=== PATIENT | female | born 1985 | race Caucasian/White ===

== ENCOUNTER 2020-11-03 10:03 | Emergency (ER) | payer BC ==
[2020-11-03] MEDS ORDERED: Pantoprazole 40 MG VIAL ONE (10:51)
[2020-11-03] MEDS ORDERED: Ondansetron PF 4 MG/2 ML Vial ONE (10:51)
[2020-11-03] MEDS ORDERED: Sodium Chloride 0.9% 1,000 ML ONE (10:51)
[2020-11-03 11:12] LABS: Hemoglobin 13.9 g/dL (12.0-16.0); Mean Corpuscular HGB CONC 32.9 g/dL (32.0-36.0); Mean Corpuscular Hemoglobin 29.2 pg (27.0-31.0); Mean Corpuscular Volume 88.7 fL (78.0-98.0); Mean Platelet Volume 9.2 fL (7.4-10.4); Platelet Count 311 thou/uL (130-400); RBC Distribution Width 12.2 % (11.5-14.5); Red Blood Cell (RBC) Count 4.78 mill/uL (4.20-5.40); White Blood Cell (WBC) Count 16.6 thou/uL (4.8-10.8)
[2020-11-03 11:17] LABS: ALT (SGPT) 22 U/L (8-55); AST (SGOT) 22 U/L (5-34); Albumin 4.2 g/dL (3.5-5.0); Alkaline Phosphatase 95 U/L (40-110); Anion Gap 20 mmol/L (10-20); BUN (Urea Nitrogen) 8 mg/dL (7.0-18.7); Bilirubin, Total 0.5 mg/dL (0.2-1.2); Calc. Creatinine Clearance 0 mL/min (70-130); Calcium 9.4 mg/dL (7.8-10.44); Carbon Dioxide 17 mmol/L (22-29); Chloride 106 mmol/L (98-107); Globulin 3.5 g/dL (2.4-3.5); Glucose 132 mg/dL (70-105); Potassium 4.2 mmol/L (3.5-5.1); Protein, Total 7.7 g/dL (6.0-8.3); Sodium 139 mmol/L (136-145)
[2020-11-03 11:19] LABS: CRP (Inflammatory) 2.45 mg/dL (= or < 0.5)
[2020-11-03 11:21] LABS: Manual Diff?? YES
[2020-11-03 11:22] LABS: Anisocytosis SLIGHT = 6-15 cells (100X) (0-5/hpf); Band 3 % (5-11); Lymphocytes 14 % (21-51); MDiff Complete? YES; Monocytes 2 % (0-10); Neutrophil 81 % (42-75); Platelet Morphology Comment Appears Adequate
[2020-11-03] MEDS ORDERED: Morphine 4 MG/ML VIAL ONE (12:03)
[2020-11-03 15:55] LABS: Bilirubin Negative (Negative); Blood, Urine Trace (Negative); Clarity Clear (Clear); Glucose, Urine (Dipstick) Negative (Negative); Ketone, Urine 40 mg/dL (Negative); Leukocyte Negative (Negative); Nitrite Negative (Negative); Protein, Urine (Dipstick) Trace mg/dL (Neg-Trace); Specific Gravity, Urine 1.015 (1.005-1.030); Urobilinogen 0.2 mg/dL (Less than 2); pH, Urine 6.5 (5.0-9.0)
[2020-11-03 16:07] LABS: Bacteria/HPF None Seen HPF (None Seen); Pregnancy Test - Urine (BHCG) Negative (Negative); Pregu Control Background? CLEAR/WHITE (CLR/WHITE); Pregu Control Bar Appear? YES (CONTROL BAR); RBC/HPF 0-3 HPF (0-3); Specific Gravity 1.015 (1.002-1.036); Squamous Epithelial 0-3 HPF (0-3); WBC/HPF None Seen HPF (0-3)
== END 2020-11-03 16:00 | disposition home or self-care (01) ==
LOC: MADERS 10:03
DX: K27.9 Peptic ulcer, site unspecified, unspecified as acute or chronic, without hemorrhage or perforation (principal); N20.0 Calculus of kidney; R63.0 Anorexia; M06.9 Rheumatoid arthritis, unspecified
CPT/HCPCS: 71045; 74177; 80053; 81003; 81015; 81025; 82150; 82550; 83690; 84484; 85025; 86140; 93005; 96374; 96375; C9113; J2270; J2405; J7050